=== PATIENT | female | born 1995 | race Caucasian/White ===

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

== ENCOUNTER 2017-11-30 02:08 | Emergency (ER) | payer BC ==
[2017-11-30] MEDS ORDERED: ACETAMINOPHEN 500 MG TAB PO ONE (04:19)
[2017-11-30] MEDS ORDERED: IBUPROFEN 200 MG TAB PO ONE (04:19)
--- NOTE | 2017-11-30 04:19 | EDPHY ---
H & P Stated Complaint: c/o abd pain - similar to episode of iud displacement Time Seen by Provider: 11/30/17 03:12 HPI/ROS: HPI The patient presents with right-sided lower abdominal pain which has been present for the last 2 days. Pain started suddenly and was gel and intermittent and now is sharp and more constant. It is worse with movement. It is moderate in severity. She does not have any vaginal bleeding, nausea, vomiting, dizziness or lightheadedness. She has a Mirena IUD in place and does not have any vaginal bleeding on this. She denies any vaginal discharge. She has a history of a hemorrhagic cyst about 1 year ago.. REVIEW OF SYSTEMS Constitutional: No fever, no chills. Eyes: No discharge. ENT: No sore throat. Cardiovascular: No chest pain, no palpitations. Respiratory: No cough, no shortness of breath. Gastrointestinal: Positive for abdominal pain, no vomiting. Genitourinary: No hematuria. Musculoskeletal: No back pain. Skin: No rashes. Neurological: No headache. PMHx: History of hemorrhagic ovarian cyst Soc Hx: College student PHYSICAL General Appearance: Alert, no distress Eyes: Pupils equal and round no pallor or injection ENT, Mouth: Mucous membranes moist Respiratory: There are no retractions, lungs are clear to auscultation Cardiovascular: Regular rate and rhythm Gastrointestinal: Abdomen is soft with mild tenderness in the low right lower quadrant without rebound or guarding Neurological: A&O, moves all extremities Skin: Warm and dry, no rashes Musculoskeletal: Neck is supple non tender Extremities: symmetrical, full range of motion Psychiatric: Patient is oriented X 3, there is no agitation Source: Patient Exam Limitations: No limitations - Personal History Tetanus Vaccine Date: < 10 YEARS - Medical/Surgical History Hx Asthma: No Hx Chronic Respiratory Disease: No Hx Diabetes: No Hx Cardiac Disease: No Hx Renal Disease: No Hx Cirrhosis: No Hx Alcoholism: No Hx HIV/AIDS: No Hx Splenectomy or Spleen Trauma: No Other PMH: tonsillectomy, wisdom teeth, mass removed from R breast - Social History Smoking Status: Never smoked Constitutional: Initial Vital Signs Temperature (C) 36.6 C 11/30/17 02:11 Heart Rate 82 11/30/17 02:11 Respiratory Rate 16 11/30/17 02:11 Blood Pressure 132/81 H 11/30/17 02:11 O2 Sat (%) 96 11/30/17 02:11 O2 Delivery Mode Room Air Allergies/Adverse Reactions: latex Allergy (Intermediate, Verified 11/30/17 02:14) Rash Home Medications: Medication Instructions Recorded NK [No Known Home Meds] 11/30/17 Medical Decision Making - Diagnostics Imaging Results: Pelvic ultrasound demonstrates collapsed right-sided ovarian cyst with free fluid present in the pelvis which is mild to moderate, there is flow to both ovaries seen, IUD is in normal position, discussed with Dr. Ayon radiologist admissions nurse. Differential Diagnosis: This is a 22-year-old female who is healthy the with history of right-sided hemorrhagic ovarian cyst who presents with 2 days of right lower quadrant abdominal pain with no associated features. On exam, she is mildly tender in the right lower quadrant, vital signs are normal. Differential diagnosis includes ruptured ovarian cyst, ovarian torsion, appendicitis. In the emergency department ultrasound was obtained and did demonstrate likely hemorrhagic right-sided ovarian cyst once again is with cyst visualized in the right adnexa with pelvic free fluid. I reexamined the patient and her tenderness is quite mild. She is hemodynamically stable with stable vital signs here. As I feel she is well enough to go home and I do not think she risks hemodynamic compromise. I have discussed her ultrasound results with her. I will discharge her with instructions for ibuprofen and Tylenol. She has an OBGYN in [place] and will follow up with her in the next week or so. We discussed return precautions to the emergency department. - Data Points Laboratory Results: 11/30/17 03:26 Urine Color COLORLESS Urine Appearance CLEAR Urine pH 6.0 (5.0-7.5) Ur Specific [place] 1.001 L (1.002-1.030) Urine Protein NEGATIVE (NEGATIVE) Urine Ketones NEGATIVE (NEGATIVE) Urine Blood NEGATIVE (NEGATIVE) Urine Nitrate NEGATIVE (NEGATIVE) Urine Bilirubin NEGATIVE (NEGATIVE) Urine Urobilinogen NEGATIVE EU EU (0.2-1.0) Ur Leukocyte Esterase NEGATIVE (NEGATIVE) Urine Glucose NEGATIVE (NEGATIVE) Departure - Departure Disposition: Home, Routine, Self-Care Clinical Impression: Ruptured ovarian cyst Condition: Good Instructions: Ruptured Ovarian Cyst (ED) Additional Instructions: I recommend you take ibuprofen 400 mg with acetaminophen 650 mg every 6 hr around the clock until your pain is improved. You should return to the emergency department if your feeling dizzy, lightheaded, worse in any way. You should follow up with your OBGYN in 1-2 weeks. Stand Alone Forms: School Excuse
[2017-11-30 04:29] VITALS: BP 126/68
== END 2017-11-30 04:28 | disposition home or self-care (01) ==
DX: N83.201 Unspecified ovarian cyst, right side (principal); Z91.040 Latex allergy status

== ENCOUNTER 2019-01-07 21:25 | Emergency (ER) | payer BC | END 2019-01-07 22:08 | disposition home or self-care (01) ==